=== PATIENT | male | born 1995 | race Caucasian/White ===

== ENCOUNTER 2019-01-07 09:56 | Emergency (ER) | payer SELFPAY ==
[2019-01-07] MEDS ORDERED: ONDANSETRON 4 MG TAB.RAPDIS PO ONE (11:07)
[2019-01-07] MEDS ORDERED: BENZONATATE 100 MG CAPSULE PO ONE (11:07)
--- NOTE | 2019-01-07 11:11 | ER Document Report ---
HPI - HPI Time Seen by Provider: 01/07/19 10:56 Pain Level: 4 Context: Patient is a 23-year-old male presents to the emergency department with a chief complaint of cough and sore throat. Patient states a few days ago he did feel somewhat drowsy and had body aches. He stated he did have an upset stomach with 1-2 episodes of diarrhea and 1-2 episodes of vomiting. Patient states he has been able to tolerate liquids and food since then although he has not had much o f an appetite. Patient states he is surrounded with sick contacts as everyone in his household has similar symptoms. Patient denies fever but does report chills. Patient reports a productive cough that started this morning as well as a sore throat that started today. Patient states he has not taken any medications for this. Patient reports he does smoke 1 pack/day. Past Medical History - General Information source: Patient - Social History Smoking Status: Current Every Day Smoker Cigarette use (# per day): Yes - 1 ppd Chew tobacco use (# tins/day): No Smoking Education Provided: Yes Frequency of alcohol use: None Drug Abuse: None Lives with: Family Family History: None - Past Medical History Cardiac Medical History: Reports: None Pulmonary Medical History: Reports: None EENT Medical History: Reports: None Neurological Medical History: Reports: None Endocrine Medical History: Reports: None Renal/ Medical History: Reports: None Malignancy Medical History: Reports None GI Medical History: Reports: None Musculoskeletal Medical History: Reports None Skin Medical History: Reports None Psychiatric Medical History: Reports: None Traumatic Medical History: Reports: None Infectious Medical History: Reports: None Past Surgical History: Reports: None Vertical Provider Document - CONSTITUTIONAL Agree With Documented VS: Yes Exam Limitations: No Limitations General Appearance: No Apparent Distress - HEENT HEENT: Atraumatic, Normal ENT Exam, Normocephalic, PERRLA Notes: Slight erythema to tonsils, no tonsillar hypertrophy, uvula is midline, air way is patent. - NECK Neck: Normal Inspection - RESPIRATORY Respiratory: Breath Sounds Normal, No Respiratory Distress, Chest Non-Tender Notes: + congested cough noted during examination. - CARDIOVASCULAR Cardiovascular: Regular Rate, Regular Rhythm - GI/ABDOMEN Gastrointestinal: Abdomen Soft, Abdomen Non-Tender, No Organomegaly, Normal Bowel Sounds - NEURO Level of Consciousness: Awake, Alert, Appropriate - DERM Integumentary: Warm, Dry, No Rash Course - Re-evaluation Re-evalutation: 01/07/19 11:09 We will give patient Tessalon Perles for cough and test for strep. I did inform the patient that since his symptoms of cough and sore throat have only been present for less than 24 hours we do not typically prescribe antibiotics. Patient verbalizes understanding. I did give patient strict return precautions to include shortness of breath, chest pain, worsening symptoms, high fever or any other new or concerning symptoms. 01/07/19 11:32 Strep test was negative. I did inform the patient of this. Patient will be discharged with Zofran as well as Tessalon Perles for his cough. Patient given strict return precautions. No antibiotics are needed at this time. - Vital Signs Vital signs: Temp Pulse Resp BP Pulse Ox 97.9 F 91 16 134/49 H 97 01/07/19 10:00 01/07/19 10:00 01/07/19 10:00 01/07/19 10:00 01/07/19 10:00 Discharge - Discharge Clinical Impression: Cough, Sore throat Condition: Stable Disposition: HOME, SELF-CARE Additional Instructions: Today you were seen in the emergency department for sore throat and cough. The strep test was negative. Please take Tylenol or ibuprofen as needed for your throat discomfort. Continue to sip clear liquids frequently to prevent dehydration. You are being prescribed Tessalon Perles which is for your cough. Please return to the emergency department if there is no improvement in the next 48 to 72 hours, you have difficulty breathing, increasing throat pain, difficulty swallowing, high fever rash or uncontrollable vomiting and diarrhea. Please use the antinausea medication called Zofran as needed at home. At this time antibiotics are not required. Sore Throat Sore throats may be caused by viruses, bacteria, or fungi. Most are due to a virus, and must get better on their own. Bacterial sore throats, particularly those due to "strep," need treatment with antibiotics. If an antibiotic is prescribed, be sure to take the medication for a full 10 days. Failure to take the antibiotic can result in complications such as rheumatic fever. Sometimes, an injection of antibiotics is given instead of pills or liquid. This single "shot" is equal in effectiveness to the oral medication. To relieve symptoms, take acetaminophen for pain. Sip clear liquids frequently, or eat popsicles or ice chips. Anesthetic sprays or lozenges may help. Make sure the air in the room is not too dry. Avoid using decongestants or antihistamines. Call the doctor if there is no improvement in two days, or if you have difficulty breathing, increasing throat pain, high fever, rash, or frequent vomiting. Prescriptions: Benzonatate [Tessalon Perles 100 mg Capsule] 100 mg PO Q8HP PRN #20 capsule PRN Reason: Forms: Smoking Cessation Education, Return to Work
[2019-01-07] MEDS ORDERED: ONDANSETRON ODT 4 MG TAB (6 TAB/ER DISP) PO PRN (11:33)
[2019-01-07 11:51] VITALS: BP 140/68
== END 2019-01-07 11:47 | disposition home or self-care (01) ==
LOC: ER 09:56
DX: R05 Cough (principal); J02.9 Acute pharyngitis, unspecified; M79.10 Myalgia, unspecified site; R11.10 Vomiting, unspecified; R63.0 Anorexia; F17.210 Nicotine dependence, cigarettes, uncomplicated
CPT/HCPCS: 87070; 87880; S0119; 99283

== ENCOUNTER 2019-01-16 05:00 | Emergency (ER) | payer SELFPAY ==
--- NOTE | 2019-01-16 05:17 | ER Document Report ---
ED General - General Stated Complaint: SUCIDIAL IDEATIONS Time Seen by Provider: 01/16/19 05:01 - HPI Notes: Patient is a 23-year-old male that presents to the emergency department for chief complaint of suicidal ideation. Patient states he got in an argument with his girlfriend today and she tried to break up with him. He was very upset and took "a few handfuls of ibuprofen". He believes there were 15 to 20 tablets in the bottle. The ingestion took place around 3:30 AM today. Patient also states he has had 4-5 beers and "a few shots". Patient told his girlfriend that he took the medication as an attempt to kill himself. She called EMS however patient began to run when they showed up. EMS called [facility] who were able to catch up with the patient and escort him to the emergency room. Patient does drink alcohol daily. He denies any other drug ingestions. Currently patient states he does not want to kill himself that he was acting out for attention. He denies history of suicidal ideation in the past. Past Medical History: Negative Past Surgical History: Right ankle fracture repair Social History: Daily alcohol. Daily tobacco. Denies drug use Family History: Reviewed and noncontributory for presenting illness Allergies: Reviewed, see documented allergy list. REVIEW OF SYSTEMS: CONSTITUTIONAL : No fever No chills No diaphoresis No recent illness EENT: No vision changes No congestion No sore throat CARDIOVASCULAR: No chest pain No palpitations RESPIRATORY: No shortness of breath No cough No difficulty breathing GASTROINTESTINAL: No abdominal pain No nausea No vomiting No diarrhea GENITOURINARY: No dysuria No hematuria No difficulty urinating MUSCULOSKELETAL: No back pain No leg pain No arm pain SKIN: No rashes No lesions LYMPHATIC: No swollen, enlarged glands. NEUROLOGICAL: No lightheadedness No headache No weakness No paresthesias PSYCHIATRIC: No anxiety depression Suicidal ideation PHYSICAL EXAMINATION: Vital signs reviewed, nursing noted reviewed. GENERAL: Well-appearing, well-nourished and in no acute distress. HEAD: Atraumatic, normocephalic. EYES: Eyes appear normal, extraocular movements intact, sclera anicteric, conjunctiva are normal. ENT: nares patent, oropharynx clear without exudates. Moist mucous membranes. NECK: Normal range of motion, supple without lymphadenopathy LUNGS: Breath sounds clear to auscultation bilaterally and equal. No wheezes rales or rhonchi. HEART: Regular rate and rhythm without murmurs ABDOMEN: Soft, nontender, normoactive bowel sounds. No rebound, guarding, or rigidity. No masses appreciated. EXTREMITIES: Nontender, good range of motion, no pitting or edema. NEUROLOGICAL: No focal neurological deficits. Moves all extremities spontaneously Motor and sensory grossly intact on exam. PSYCH: Agitated mood, normal affect. SKIN: Warm, Dry, normal turgor, no rashes or lesions noted on exposed skin - Related Data Allergies/Adverse Reactions: No Known Allergies Allergy (Verified 01/07/19 09:58) Past Medical History - Social History Smoking Status: Current Every Day Smoker Family History: None Renal/ Medical History: Denies: Hx Peritoneal Dialysis Physical Exam - Vital signs Vitals: Temp Pulse Resp BP Pulse Ox 98.1 F 107 H 16 129/57 H 97 01/16/19 05:04 01/16/19 05:04 01/16/19 05:04 01/16/19 05:04 01/16/19 05:04 Course - Re-evaluation Re-evalutation: 01/16/19 05:16 Vitals reviewed. Nursing notes reviewed. Patient is agitated that he has to stay in the emergency room but is otherwise in no acute distress. He did reportedly take 15 to 20 tablets of ibuprofen which is 3000 4000 mg and not a toxic level. The girlfriend states she is sure that it was ibuprofen but was not able to find the bottle. Patient intentionally overdosed on a medication today as a gesture to commit suicide and will be placed on IVC petition for further psychiatric evaluation. Blood work will be drawn for medical evaluation and clearance. 01/16/19 05:53 Patient's work-up today is unremarkable. I will add a repeat Tylenol level to be drawn 4 hours postingestion to confirm that it remains 0 however his initial Tylenol level is completely negative and the girlfriend is confident it was ibuprofen he ingested. Laboratory 01/16/19 01/16/19 05:15 05:15 WBC 7.2 RBC 4.91 Hgb 15.0 Hct 42.3 MCV 86 MCH 30.6 MCHC 35.5 RDW 12.7 Plt Count 217 Lymph % (Auto) 28.6 Gem % (Auto) 4.4 Eos % (Auto) 0.8 Baso % (Auto) 1.0 Absolute Neuts (auto) 4.7 Absolute Lymphs (auto) 2.1 Absolute Monos (auto) 0.3 Absolute Eos (auto) 0.1 Absolute Basos (auto) 0.1 Seg Neutrophils % 65.2 Sodium 142.5 Potassium 3.8 Chloride 104 Carbon Dioxide 22 Anion Gap 17 BUN 9 Creatinine 0.92 Est GFR ( Amer) > 60 Est GFR (MDRD) Non-Af > 60 Glucose 88 Calcium 9.5 Total Bilirubin 0.4 Direct Bilirubin 0.2 Neonat Total Bilirubin Not Reportable Neonat Direct Bilirubin Not Reportable Neonat Indirect Bili Not Reportable AST 24 ALT 12 Alkaline Phosphatase 90 Total Protein 7.0 Albumin 4.4 Salicylates < 1.0 L Acetaminophen < 10 L Serum Alcohol 138 - Vital Signs Vital signs: Temp Pulse Resp BP Pulse Ox 98.1 F 107 H 16 129/57 H 97 01/16/19 05:04 01/16/19 05:04 01/16/19 05:04 01/16/19 05:04 01/16/19 05:04 - Laboratory Result Diagrams: 01/16/19 05:15 01/16/19 05:15 Laboratory results interpreted by me: 01/16/19 05:15 Salicylates < 1.0 L Acetaminophen < 10 L - EKG Interpretation by Me Additional EKG results interpreted by me: 01/16/19 05:31 Interpreted by myself [id number]: Normal sinus rhythm, rate 100, normal axis, no STEMI, no ectopy Discharge - Discharge Clinical Impression: Suicidal ideation Intentional ibuprofen overdose Qualifiers: Encounter type: initial encounter Qualified Code(s): T39.312A - Poisoning by propionic acid derivatives, intentional self-harm, initial encounter Condition: Stable Disposition: PSYCH HOSP/UNIT
[2019-01-16 05:27] LABS: ABSOLUTE BASOPHILS # (AUTO) 0.1 10^3/uL (0.0-0.2); ABSOLUTE EOSINOPHILS # (AUTO) 0.1 10^3/uL (0.0-0.6); ABSOLUTE LYMPHOCYTES (AUTO) 2.1 10^3/uL (0.5-4.7); ABSOLUTE MONOCYTES (AUTO) 0.3 10^3/uL (0.1-1.4); ABSOLUTE NEUT (AUTO) 4.7 10^3/uL (1.7-8.2); EOSINOPHILS % (AUTO) 0.8 % (0-6); HEMATOCRIT 42.3 % (37.9-51.0); LYMPHOCYTES % (AUTO) 28.6 % (13-45); MEAN CORPUSCULAR HEMOGLOBIN 30.6 pg (27.0-33.4); MEAN CORPUSCULAR HGB CONC 35.5 g/dL (32.0-36.0); MEAN CORPUSCULAR VOLUME 86 fl (80-97); MONOCYTES % (AUTO) 4.4 % (3-13); PLATELET COUNT 217 10^3/uL (150-450); RED BLOOD COUNT 4.91 10^6/uL (4.35-5.55); RED CELL DISTRIBUTION WIDTH 12.7 % (11.5-14.0); SEGMENTED NEUTROPHILS % (AUTO) 65.2 % (42-78); TOTAL CELLS COUNTED % (AUTO) 100 %; WHITE BLOOD COUNT 7.2 10^3/uL (4.0-10.5)
[2019-01-16 05:50] LABS: ALBUMIN 4.4 g/dL (3.5-5.0); ALCOHOL 138 mg/dL (NONE DETECTED); ALKALINE PHOSPHATASE 90 U/L (38-126); ANION GAP 17 (5-19); ASPARTATE AMINO TRANSFERASE 24 U/L (17-59); BILIRUBIN,DIRECT 0.2 mg/dL (0.0-0.4); BILIRUBIN,TOTAL 0.4 mg/dL (0.2-1.3); BLOOD UREA NITROGEN 9 mg/dL (7-20); CALCIUM 9.5 mg/dL (8.4-10.2); CARBON DIOXIDE 22 mmol/L (22-30); CHLORIDE 104 mmol/L (98-107); GLUCOSE 88 mg/dL (75-110); POTASSIUM 3.8 mmol/L (3.6-5.0)
[2019-01-16 05:51] LABS: ACETAMINOPHEN < 10 ug/mL (10-30); SALICYLATE < 1.0 mg/dL (2.0-20.0)
[2019-01-16 08:30] LABS: APPEARANCE,URINE CLEAR; BILIRUBIN,URINE NEGATIVE (NEGATIVE); COLOR,URINE YELLOW; GLUCOSE, URINE NEGATIVE (NEGATIVE); KETONES,URINE TRACE mg/dL (NEGATIVE); LEUKOCYTE ESTERASE,URINE NEGATIVE (NEGATIVE); NITRITE,URINE NEGATIVE (NEGATIVE); PROTEIN,URINE 30 mg/dL (NEGATIVE); URINE SPECIFIC GRAVITY 1.016; UROBILINOGEN,URINE NEGATIVE mg/dL (<2.0)
[2019-01-16 08:36] LABS: URINE AMPHETAMINES SCREEN NEGATIVE; URINE BARBITURATES SCREEN NEGATIVE; URINE BENZODIAZEPINES SCREEN NEGATIVE; URINE COCAINE SCREEN NEGATIVE; URINE MARIJUANA (THC) SCREEN NEGATIVE; URINE METHADONE SCREEN NEGATIVE; URINE PHENCYCLIDINE SCREEN NEGATIVE
--- NOTE | 2019-01-16 10:57 | PSYCHOLOGICAL NOTE ---
Psych Note - Psych Note Date seen by psych provider: 01/16/19 Time seen by psych provider: 08:10 Psych Note: Reason for Consult: Overdose Patient is a 23-year-old male that presents to the emergency department for chief complaint of suicidal ideation. Patient states he got in an argument with his girlfriend today and she tried to break up with him. He was very upset and took "a few handfuls of ibuprofen". He reports that he was drinking yesterday and ended up getting in a fight with his girlfriend and did some "foolish stuff." When asked to clarify what "foolish stuff" is he states "I messed around with my well-being." Patient denies ever being inpatient psychiatric treatment or having a mental health diagnosis. He denies ever having medications or seeing a therapist. He reports that he recently came to [place] from [place] in September with his girlfriend. He reports that his girlfriend wanted to move here to be closer with her father so he came with her. He denies that he has any other family or friends in the area and when asked about [place] he reports he has only "a couple friends." He reports he is not talking to his father currently and his mother lives in [place]. Patient states that he drinks once or twice a week and then on weekends. Patient is alert and orientated to person, place, time and circumstance. Mood is oddly euthymic with congruent affect. Clinician notes patient avoids confirming overdose stating he did "foolish stuff" or that he "messed around with my well-being." Patient denies homicidal ideation. Delusions are absent behaviors congruent with an intact reality based presentation i.e. organized linear thought process. Thought content is guarded. Eye contact was well- maintained. Conversational speech was within normal rate, tone and prosody. Intellectual abilities appear to be within the average range. Attention and concentration are currently good. Insight, judgment, impulse control are poor. alcohol intoxication Intentional overdose no medication recommendations at this time Impression/plan: patient is recommended for overnight mental health observation. Dr. Metcalf was consulted on the care and mangement of this patient; attending physician is in agreement with recommendations and disposition.
[2019-01-16] MEDS ORDERED: ALPRAZOLAM 0.5 MG TABLET PO ONE (19:02)
--- NOTE | 2019-01-16 19:03 | EKG REPORT ---
SEVERITY:- OTHERWISE NORMAL ECG - SINUS TACHYCARDIA : Confirmed by: Helena Hopson MD 16-Jan-2019 19:02:56
[2019-01-17 06:46] VITALS: BP 110/52
--- NOTE | 2019-01-17 09:18 | PSYCHOLOGICAL NOTE ---
Psych Note - Psych Note Date seen by psych provider: 01/17/19 Time seen by psych provider: 08:20 Psych Note: Reason for Consult: Overdose Patient is a 23-year-old male that presents to the emergency department for chief complaint of suicidal ideation. Patient states he got in an argument with his girlfriend today and she tried to break up with him. He was very upset and took "a few handfuls of ibuprofen". Check in conducted with patient alcohol intoxication Intentional overdose no medication recommendations at this time Impression/plan: Dr. Metcalf was consulted on the care and management of this patient; attending physician is in agreement with recommendations and disposition.
== END 2019-01-17 09:45 | disposition home or self-care (01) ==
LOC: ER 05:00
DX: R45.851 Suicidal ideations (principal); T39.312A Poisoning by propionic acid derivatives, intentional self-harm, initial encounter; X58.XXXA Exposure to other specified factors, initial encounter; F17.200 Nicotine dependence, unspecified, uncomplicated
CPT/HCPCS: 36415; 80053; 80307; 81001; 85025; 93005; 93010; 99285